=== PATIENT | male | born 1950 | race Caucasian/White ===

== ENCOUNTER 2017-06-16 05:10 | Inpatient (IN) | payer OTHER, MEDICARE ==
[2017-06-16] VITALS (41 sets, daily range): BP systolic 97–160; BP diastolic 8–99; PULSE 64–167; RESP 6–28; TEMP 97.6; O2SAT 93–99
[~2017-06-16] VITALS: Ht 177.8 cm; Wt 77.3 kg
[~2017-06-16 05:10] MED LIST: LOMO PO; PROM1SUP12 PR; [UNRECOGNIZED DRUG - CODE] PO
[2017-06-16] MEDS: ASPIRIN 81 MG CHEW TAB PO ONE ×2 (05:15→05:25)
[2017-06-16] MEDS ORDERED: SODIUM CHLORIDE 0.9% FLUSH 10 ML FLUSH IVF PRN (05:15)
[2017-06-16] MEDS ORDERED: AMIT10TA6 PO (05:21)
[2017-06-16] MEDS ORDERED: NITR1SUB3 SL (05:21)
[2017-06-16] MEDS ORDERED: ASPI1TAB57 PO (05:21)
[2017-06-16] MEDS ORDERED: FINA1TAB16 PO (05:21)
[2017-06-16 05:29] LABS: AUTOMATED NEUTROPHIL # 3.9 TH/MM3 (1.8-7.7); BASOPHIL # 0.1 TH/MM3 (0-0.2); EOSINOPHIL # 0.4 TH/MM3 (0-0.4); EOSINOPHIL % 4.6 % (0.0-4.0); HEMATOCRIT 52.9 % (39.0-51.0); HEMOGLOBIN 17.7 GM/DL (13.0-17.0); LYMPH % 35.5 % (9.0-44.0); LYMPHOCYTE # 2.9 TH/MM3 (1.0-4.8); MEAN CELL VOLUME 91.9 FL (80.0-100.0); MEAN CORPUSCULAR HEMOGLOBIN 30.7 PG (27.0-34.0); MEAN CORPUSCULAR HGB CONC 33.4 % (32.0-36.0); MONO % 9.4 % (0.0-8.0); MONOCYTE # 0.8 TH/MM3 (0-0.9); NEUT % 49.5 % (16.0-70.0); PLATELET COUNT 194 TH/MM3 (150-450); RED BLOOD COUNT 5.75 MIL/MM3 (4.50-5.90); RED CELL DISTRIBUTION WIDTH 12.6 % (11.6-17.2); WHITE BLOOD COUNT 8.1 TH/MM3 (4.0-11.0)
[2017-06-16] MEDS ORDERED: ONDANSETRON HCL 4 MG/2 ML VIAL IV ONE ×2 (05:30)
[2017-06-16] MEDS ORDERED: DILTIAZEM INJ 125 MG in SODIUM CHLORIDE 0.9% INJ 100 ML IV PRN (05:30)
[2017-06-16] MEDS ORDERED: DILTIAZEM HCL 25 MG/5 ML VIAL IV ONE (05:30)
[2017-06-16] MEDS ORDERED: NITROGLYCERIN 0.4 MG SL 25 TABS/BTL SL SCH (05:30)
[2017-06-16] MEDS ORDERED: DILTIAZEM HCL 25 MG/5 ML VIAL IV PUSH ONE (05:30)
[2017-06-16 05:40] LABS: CHLORIDE 104 MEQ/L (98-107); SODIUM (NA) 140 MEQ/L (136-145)
[2017-06-16 05:43] LABS: CALCIUM 8.6 MG/DL (8.5-10.1)
[2017-06-16 05:44] LABS: ALBUMIN 3.5 GM/DL (3.4-5.0); BICARBONATE 29.1 MEQ/L (21.0-32.0); BLOOD UREA NITROGEN 7 MG/DL (7-18); GLUCOSE,RANDOM 114 MG/DL (74-106); INTERNATIONAL NORMALIZED RATIO 1.1 RATIO; MAGNESIUM 2.2 MG/DL (1.5-2.5); PROTHROMBIN TIME - PATIENT 10.7 SEC (9.8-11.6)
[2017-06-16 05:47] LABS: ALT (GPT) 35 U/L (12-78); AST (GOT) 21 U/L (15-37); GLOMERULAR FILTRATION RATE 74 ML/MIN (>89)
[2017-06-16 05:49] LABS: TOTAL BILIRUBIN ADULT 0.7 MG/DL (0.2-1.0); TOTAL PROTEIN 7.1 GM/DL (6.4-8.2)
[2017-06-16 05:50] LABS: ALKALINE PHOSPHATASE 97 U/L (45-117)
[2017-06-16 05:52] LABS: TROPONIN I LESS THAN 0.02 NG/ML (0.02-0.05)
--- NOTE | 2017-06-16 05:56 | PD ---
HPI Chief Complaint: Cardiac Complaint Time Seen by Provider: 05:20 Travel History International Travel<30 days: No Contact w/Intl Traveler<30days: No Traveled to known affect area: No History of Present Illness HPI The patient is a 67-year-old male with apparently no known history of heart disease and no history of atrial fibrillation who complains of chest heaviness at 4 AM his morning. The pain is perceived in his midsternal region and is constant since 4 AM. He does have diaphoresis, shortness of breath, nausea and possible radiation to the left arm. He denies any syncopal or near syncopal spells. Apparently, he had chest pain about 2 years ago and had a normal stress test and saw a brusher operator at [facility]. He cannot remember the brusher operator's name. His chest pain was an 8/10. The patient states he is had brief episodes of palpitations intermittently for the past 2 years. He reported this to his brusher operator and his brusher operator did a 24-hour Holter monitor but did not picker machine operator any dysrhythmia at that time. [facility] Past Medical History Diminished Hearing: No GERD: Yes Insomnia: Yes Past Surgical History Cholecystectomy: Yes Social History Alcohol Use: Yes (OCCAS GLASS OF WINE) Tobacco Use: No Substance Use: No Allergies-Medications (Allergen,Severity, Reaction): Coded Allergies: morphine (Unverified Adverse Reaction, Severe, Nausea/Vomiting, 06/16/17) Reported Meds & Prescriptions Reported Meds & Active Scripts Active Reported Aspirin 81 (Aspirin) 81 Mg Tabdr 81 Mg PO DAILY Finasteride (Finasteride (Alopecia)) 1 Mg Tab 1 Mg PO DAILY Nitroglycerin SL (Nitroglycerin) 0.4 Mg Subl 0.4 Mg SL DIRECTED PRN ONE TABLET UNDER THE TONGUE NEEDED FOR CHEST PAIN, MAY REPEAT EVERY FIVE MINUTES FOR A TOTAL OF 3 DOSES OR CALL 911 IF NO RELIEF Amitriptyline (Amitriptyline HCl) 10 Mg Tab 10 Mg PO HS Review of Systems Except as stated in HPI: all other systems reviewed are Neg Physical Exam Narrative GENERAL: The patient is alert, oriented 3 in moderate apparent distress with areas chest discomfort. His vital signs show temperature 97.6 with pulse rate of 167 but otherwise normal. SKIN: Focused skin assessment cool/diaphoretic. No skin rash is present. HEAD: Atraumatic. Normocephalic. EYES: Pupils equal and round. No scleral icterus. No injection or drainage. ENT: No nasal bleeding or discharge. Mucous membranes pink and moist. NECK: Trachea midline. No JVD. No neck vein distention is present. CARDIOVASCULAR: Atrial fibrillation with RVR. No murmur appreciated. RESPIRATORY: No accessory muscle use. Clear to auscultation. Breath sounds equal bilaterally. GASTROINTESTINAL: Abdomen soft, non-tender, nondistended. Hepatic and splenic margins not palpable. MUSCULOSKELETAL: No obvious deformities. No clubbing. No cyanosis. No edema. NEUROLOGICAL: Awake and alert. No obvious cranial nerve deficits. Motor grossly within normal limits. Normal speech. PSYCHIATRIC: Appropriate mood and affect; insight and judgment normal. Data Data Last Documented VS Vital Signs Date Time Temp Pulse Resp B/P (MAP) Pulse Ox O2 Delivery O2 Flow Rate FiO2 06/16/17 05:55 100 16 98/68 (78) 98 Nasal Cannula 06/16/17 05:29 3.00 06/16/17 05:13 97.6 Orders Orders Electrocardiogram (06/16/17 05:15) B-Type Natriuretic Peptide (06/16/17 05:15) Ckmb (Isoenzyme) Profile (06/16/17 05:15) Complete Blood Count With Diff (06/16/17 05:15) Comprehensive Metabolic Panel (06/16/17 05:15) Magnesium (Mg) (06/16/17 05:15) Prothrombin Time / Inr (Pt) (06/16/17 05:15) Act Partial Throm Time (Ptt) (06/16/17 05:15) Troponin I (06/16/17 05:15) Chest, Single Ap (06/16/17 05:15) Ecg Monitoring (06/16/17 05:15) Bilateral Bp Monitoring (06/16/17 05:15) Iv Access Insert/Monitor (06/16/17 05:15) Oximetry (06/16/17 05:15) Oxygen Administration (06/16/17 05:15) Aspirin Chew (Aspirin Chew) (06/16/17 05:15) Sodium Chloride 0.9% Flush (Ns Flush) (06/16/17 05:15) Vital Signs (Adult) Q15MX4,Q4H (06/16/17 05:17) Bank Courier / Telemetry DONALD.Q8H (06/16/17 05:17) Cardiac Rhythm DONALD.Q8H (06/16/17 05:17) Notify Dr: Other (06/16/17 05:17) Diltiazem Inj (Cardizem Inj) (06/16/17 05:30) Diltiazem Inj (Cardizem Inj) (06/16/17 05:30) Ondansetron Inj (Zofran Inj) (06/16/17 05:30) Nitroglycerin Sl (Nitrostat Sl) (06/16/17 05:30) Ondansetron Inj (Zofran Inj) (06/16/17 05:30) Diltiazem Inj (Cardizem Inj) (06/16/17 05:30) Urinalysis - C+S If Indicated (06/16/17 05:58) Admit Order (Ed Use Only) (06/16/17 06:09) Labs Laboratory Tests Test 06/16/17 05:19 06/16/17 06:00 White Blood Count 8.1 TH/MM3 Red Blood Count 5.75 MIL/MM3 Hemoglobin 17.7 GM/DL Hematocrit 52.9 % Mean Corpuscular Volume 91.9 FL Mean Corpuscular Hemoglobin 30.7 PG Mean Corpuscular Hemoglobin Concent 33.4 % Red Cell Distribution Width 12.6 % Platelet Count 194 TH/MM3 Mean Platelet Volume 8.0 FL Neutrophils (%) (Auto) 49.5 % Lymphocytes (%) (Auto) 35.5 % Monocytes (%) (Auto) 9.4 % Eosinophils (%) (Auto) 4.6 % Basophils (%) (Auto) 1.0 % Neutrophils # (Auto) 3.9 TH/MM3 Lymphocytes # (Auto) 2.9 TH/MM3 Monocytes # (Auto) 0.8 TH/MM3 Eosinophils # (Auto) 0.4 TH/MM3 Basophils # (Auto) 0.1 TH/MM3 CBC Comment DIFF FINAL Differential Comment Prothrombin Time 10.7 SEC Prothromb Time International Ratio 1.1 RATIO Activated Partial Thromboplast Time 24.3 SEC Blood Urea Nitrogen 7 MG/DL Creatinine 1.00 MG/DL Random Glucose 114 MG/DL Total Protein 7.1 GM/DL Albumin 3.5 GM/DL Calcium Level 8.6 MG/DL Magnesium Level 2.2 MG/DL Alkaline Phosphatase 97 U/L Aspartate Amino Transf (AST/SGOT) 21 U/L Alanine Aminotransferase (ALT/SGPT) 35 U/L Total Bilirubin 0.7 MG/DL Sodium Level 140 MEQ/L Potassium Level 3.5 MEQ/L Chloride Level 104 MEQ/L Carbon Dioxide Level 29.1 MEQ/L Anion Gap 7 MEQ/L Estimat Glomerular Filtration Rate 74 ML/MIN Total Creatine Kinase 77 U/L Troponin I LESS THAN 0.02 NG/ML B-Type Natriuretic Peptide 15 PG/ML MDM Medical Decision Making Medical Screen Exam Complete: Yes Emergency Medical Condition: Yes Medical Record Reviewed: Yes Interpretation(s) The CBC shows a hemoglobin of 17.7 with hematocrit of 52.9 but is otherwise normal. The coagulation profile is normal. The complete metabolic profile shows a GFR of 74 but is otherwise normal. The cardiac enzymes are normal. The BNP is normal. The initial EKG shows atrial fibrillation with RVR and a heart rate of 147. No acute ST elevation or depression is present. Differential Diagnosis New onset atrial fibrillation with RVR, acute coronary syndrome, electrolyte disorder, hypo-/hyperglycemia Narrative Course It is now 0543 and the patient's pain is a 0/10, he is not nauseated and no longer diaphoretic. His heart rate after diltiazem 25 mg IV is averaging in the mid 80s and blood pressure is 97/65. The bolus of Cardizem was 30 mg ultimately but a drip had to be instituted because he started with rapid response rate again. This is the patient's first diagnosed episode of atrial fibrillation. Impression: New-onset atrial fibrillation with RVR Physician Communication Physician Communication I discussed the patient with Dr. Cleaning, the patient will be admitted to her in the ICU. Diagnosis Primary Impression: Atrial fibrillation with RVR Admitting Information Admitting Physician Requests: Admit Raúl Regalado MD Jun 16, 2017 05:56
[2017-06-16 06:12] LABS: BILIRUBIN, URINE NEG (NEG); BLOOD, URINE NEG (NEG); GLUCOSE,URINE NEG (NEG); KETONE, URINE TRACE mg/dL (NEG); NITRITE,URINE NEG (NEG); URINE LEUKOCYTE ESTERASE NEG (NEG)
[2017-06-16] MEDS ORDERED: MAGNESIUM HYDROXIDE SUSP 30 ML CUP PO PRN (06:15)
[2017-06-16] MEDS ORDERED: BISACODYL 10 MG SUPP RECTAL PRN (06:15)
[2017-06-16] MEDS ORDERED: ACETAMINOPHEN 325 MG TAB PO PRN (06:15)
[2017-06-16] MEDS ORDERED: MORPHINE SULFATE 2 MG/ML INJ IV PUSH PRN (06:15)
[2017-06-16] MEDS ORDERED: SODIUM CHLORIDE 0.9% FLUSH 10 ML FLUSH IV FLUSH PRN (06:15)
[2017-06-16] MEDS ORDERED: ACETAMINOPHEN/HYDROcodone 325 MG/5 MG TAB PO PRN (06:15)
[2017-06-16] MEDS ORDERED: ONDANSETRON HCL 4 MG/2 ML VIAL IVP PRN (06:15)
[2017-06-16] MEDS ORDERED: SENNOSIDES 8.6 MG TAB PO PRN (06:15)
[2017-06-16] MEDS ORDERED: LACTULOSE SYRUP 20 GM/30 ML CUP PO PRN (06:15)
[2017-06-16 06:27] LABS: URINE COLOR YELLOW (YELLW/STRAW)
--- NOTE | 2017-06-16 06:29 | RADRPT ---
EXAM DATE/TIME: 06/16/2017 05:29 [place] COMPARISON: CHEST SINGLE AP, April 15, 2012, 21:40. INDICATIONS : Chest pain. MEDICAL HISTORY : Gastroesophageal reflux disease. SURGICAL HISTORY : None. ENCOUNTER: Initial ACUITY: 1 day PAIN SCORE: 8/10 LOCATION: Bilateral chest FINDINGS: The cardiac silhouette is normal in transverse diameter. The aortic knob is prominent with tortuosity of the descending thoracic aorta. There are chronic fibrotic changes bilaterally. There is linear at electasis versus scar on the right. Diffusion weighted imaging demonstrates no abnormality. CONCLUSION: 1. Chronic fibrotic changes bilaterally unchanged from the prior study. 2. Right basilar atelectasis versus scar Eduardo Monk MD on June 16, 2017 at 6:26 Board Certified Radiologist. This report was verified electronically.
[2017-06-16 06:31] LABS: MUCUS URINE FEW /lpf (OCC)
[2017-06-16 06:32] LABS: HYALINE CAST, URINE 0-2 /lpf (RARE); SQUAMOUS EPITHELIAL CELL URINE 0-5 /hpf (0-5)
[2017-06-16] MEDS: SODIUM CHLOR 0.9% 1000 ML INJ 1,000 ML IV SCH ×2 (06:33→09:53)
--- NOTE | 2017-06-16 08:06 | MB ---
cc: JOSE ANGEL CRISTINA MD DATE OF CONSULTATION June 16, 2017 REASON FOR CONSULTATION Chest pain and new onset atrial fibrillation. HISTORY OF PRESENT ILLNESS The patient is a very pleasant 67-year-old gentleman with no prior cardiac history who does admit to periodically having palpitations and the sensation of fluttering in his chest. He presented with chest discomfort. He says beginning yesterday evening he began having a fairly severe pressure in the central chest which did not go away despite aspirin and some very old nitroglycerin he had around the house (from his father). He presented to the emergency department and was found to be in a rapid atrial fibrillation, was started on a Cardizem drip and admitted to the ICU. Now that the patient is more rate-controlled, he says he is feeling quite a bit better. He still has some mild residual chest discomfort but it is much better than when he presented. He has no shortness of breath, current sensation of palpitations, lightheadedness, dizziness or syncope. PAST MEDICAL HISTORY 1. BPH. 2. Questionable hypertension. 3. Mild polycythemia, no longer receiving phlebotomy. CURRENT MEDICATIONS 1. Aspirin 81 mg daily. 2. Cardizem drip. ALLERGIES MORPHINE. PHYSICAL EXAMINATION VITAL SIGNS: Afebrile, pulse 115, respiratory rate 18, BP 160/83, sating 99 on 2 liters. GENERAL: Pleasant, well-appearing gentleman in no distress. NECK: No JVD. LUNGS: Clear to auscultation bilaterally. CARDIOVASCULAR: Irregularly irregular rhythm with a mildly rapid rate. No murmurs appreciated. ABDOMEN: Benign. EXTREMITIES: No edema. LABORATORY DATA Sodium 140, potassium 3.5, chloride 104, bicarb 29.1, BUN 7, creatinine 1.0, glucose 114. Troponin is less than 0.02. INR is 1.1. White count 8.1, hematocrit 52.9, platelets 194. CHEST X-RAY Chronic fibrotic changes. EKG Atrial fibrillation with rapid ventricular response and rate of about [address] changes. IMPRESSION 1. New onset atrial fibrillation. The patient has atrial fibrillation of an uncertain duration. I discussed this at length with the patient and though his CHADS-VASc score is relatively low (one point for age and perhaps one point for hypertension). We agree that, given his history of polycythemia very as well as increasing age and possible hypertension, we will opt for full anticoagulation with Eliquis. The risks and benefits of anticoagulation was discussed at length with the patient. I will add oral Cardizem for rate control and attempt to get him off his Cardizem drip. We will get a 2-D echocardiogram to evaluate his LV function and valvular status. 2. Chest pain. The patient's chest pain does sound reasonably significant and it is unclear whether he was having symptomatic atrial fibrillation or if he indeed was presenting in acute coronary syndrome. His first troponin is negative. He can rule out for IN and following his third set can have a nuclear stress test either later today or tomorrow. Further recommendations will be based on the above. Thank you again for the opportunity to participate in this patient's care. MD DEEPIKA Son/LUIS /7:34 AM /7:41 AM
[2017-06-16] MEDS ORDERED: CHLORHEXIDINE GLUCONATE 2 % 1 PACK (2 CLOTHS)(extra cloths) TOPICAL PRN (08:30)
--- NOTE | 2017-06-16 08:56 | HHI.HP ---
[facility] Nimesh Mccormack M.D. Admission Diagnosis atrial fibrillation with RVR Diagnoses: Chief Complaint: chest pain Travel History International Travel<30 Days: No Contact w/Intl Traveler <30 Da: No Traveled to Known Affected Are: No History of Present Illness 67-year-old white male being admittted for chest pain Patient was in his usual state of health until earlier around 4 am morning when he woke up with some right-sided flank pain. This was followed by intense chest pain that he says was 8 out of 10 that was sharp in nature. He says he took 2 baby aspirins to no avail. He had some associated diaphoresis and nausea ; then decided to come to the emergency department. He states not chest pain is gone, feels a lot better, but still feels a funny sensation in his chest. Currently heart rate on telemetry is running anywhere from 110 to 130s while on diltiazem rate of 5. Day nurse denies any deterioration since receiving the patient. Review of Systems Except as stated in HPI: all other systems reviewed are Neg Past Family Social History Past Medical History Previous history of polycythemia BPH Past Surgical History Cholecystectomy Reported Medications finasteride Allergies: Coded Allergies: morphine (Unverified Adverse Reaction, Severe, Nausea/Vomiting, 06/16/17) Family History Parents with unspecified heart disease Social History Denies any routine smoking habit; says he smoked about 1 or 2 cigarettes over 30 years ago. Physical Exam Vital Signs Vital Signs Date Time Temp Pulse Resp B/P (MAP) Pulse Ox O2 Delivery O2 Flow Rate FiO2 06/16/17 07:23 06/16/17 07:04 115 18 160/83 (108) 99 Nasal Cannula 2.00 06/16/17 07:02 116 99 Nasal Cannula 2.00 06/16/17 06:35 110 104/83 06/16/17 06:31 106 16 104/83 (90) 98 Nasal Cannula 4.00 06/16/17 05:55 100 16 98/68 (78) 98 Nasal Cannula 06/16/17 05:45 97/65 (76) 06/16/17 05:35 93 119/64 (82) 06/16/17 05:30 118 105/71 (82) 06/16/17 05:29 18 99 Nasal Cannula 3.00 06/16/17 05:25 150 16 123/84 (97) 96 Nasal Cannula 4.00 06/16/17 05:20 158 18 106/74 (85) 98 Nasal Cannula 4.00 112/78 (89) 06/16/17 05:20 96 Nasal Cannula 4.00 06/16/17 05:13 97.6 167 18 123/84 (97) 96 Physical Exam VS: afebrile GENERAL: NAD, elderly white male, well nourished SKIN: Warm and dry. EYES: No scleral icterus. No injection or drainage. ENT: No nasal bleeding or discharge. Mucous membranes pink and moist. CARDIOVASCULAR: Irregular rhythm, tachycardic rate, no murmurs Lungs: Clear to auscultation. Breath sounds equal bilaterally. GASTROINTESTINAL: Abdomen soft, non-tender, nondistended. Extremities: No clubbing, cyanosis, or edema. No obvious deformities. MUSCULOSKELETAL: grossly intact ROM with 5/5 strength in upper and lower extremities proximally; adequate muscle bulk and tone for age and habitus NEUROLOGICAL: Awake and alert. No obvious cranial nerve deficits. No facial droop nor slurred speech noted. PSYCHIATRIC: Appropriate mood and affect; insight and judgment normal. Laboratory Laboratory Tests Test 06/16/17 05:19 06/16/17 06:00 White Blood Count 8.1 Red Blood Count 5.75 Hemoglobin 17.7 Hematocrit 52.9 Mean Corpuscular Volume 91.9 Mean Corpuscular Hemoglobin 30.7 Mean Corpuscular Hemoglobin Concent 33.4 Red Cell Distribution Width 12.6 Platelet Count 194 Mean Platelet Volume 8.0 Neutrophils (%) (Auto) 49.5 Lymphocytes (%) (Auto) 35.5 Monocytes (%) (Auto) 9.4 Eosinophils (%) (Auto) 4.6 Basophils (%) (Auto) 1.0 Neutrophils # (Auto) 3.9 Lymphocytes # (Auto) 2.9 Monocytes # (Auto) 0.8 Eosinophils # (Auto) 0.4 Basophils # (Auto) 0.1 CBC Comment DIFF FINAL Differential Comment Prothrombin Time 10.7 Prothromb Time International Ratio 1.1 Activated Partial Thromboplast Time 24.3 Blood Urea Nitrogen 7 Creatinine 1.00 Random Glucose 114 Total Protein 7.1 Albumin 3.5 Calcium Level 8.6 Magnesium Level 2.2 Alkaline Phosphatase 97 Aspartate Amino Transf (AST/SGOT) 21 Alanine Aminotransferase (ALT/SGPT) 35 Total Bilirubin 0.7 Sodium Level 140 Potassium Level 3.5 Chloride Level 104 Carbon Dioxide Level 29.1 Anion Gap 7 Estimat Glomerular Filtration Rate 74 Total Creatine Kinase 77 Troponin I LESS THAN 0.02 B-Type Natriuretic Peptide 15 Urine Color YELLOW Urine Turbidity CLEAR Urine pH 6.0 Urine Specific [place] 1.007 Urine Protein NEG Urine Glucose (UA) NEG Urine Ketones TRACE Urine Occult Blood NEG Urine Nitrite NEG Urine Bilirubin NEG Urine Leukocyte Esterase NEG Urine Squamous Epithelial Cells 0-5 Urine Hyaline Casts 0-2 Urine Mucus FEW Microscopic Urinalysis Comment CULT NOT INDICATED Result Diagram: 06/16/1751806/16/17518 Imaging Last Impressions Chest X-Ray 06/16/17514 Signed Impressions: Service Date/Time: Friday, June 16, 2017 05:29 - CONCLUSION: 1. Chronic fibrotic changes bilaterally unchanged from the prior study. 2. Right basilar atelectasis versus scar MD Sukhjinder Johnson VTE Risk Assessment Caprini VTE Risk Assessment: Mod/High Risk (score >= 2) Caprini Risk Assessment Model Point Value = 1 Point Value = 2 Point Value = 3 Point Value = 5 Age 41-60 Minor surgery BMI > 25 kg/m2 Swollen legs Varicose veins or History of unexplained or recurrent spontaneous Oral contraceptives or hormone replacement Sepsis (< 1 month) Serious lung disease, including pneumonia (< 1 month) Abnormal pulmonary function Acute myocardial infarction Congestive heart failure (< 1 month) History of inflammatory bowel disease Medical patient at bed rest Age 61-74 Arthroscopic surgery Major open surgery (> 45 min) Laparoscopic surgery (> 45 min) Malignancy Confined to bed (> 72 hours) Immobilizing plaster cast Central venous access Age >= 75 History of VTE Family history of VTE Factor V Leiden Prothrombin [id number] Lupus anticoagulant Anticardiolipin antibodies Elevated serum homocysteine Heparin-induced thrombocytopenia Other congenital or acquired thrombophilia Stroke (< 1 month) Elective arthroplasty Hip, pelvis, or leg fracture Acute spinal cord injury (< 1 month) Prophylaxis Regimen Total Risk Factor Score Risk Level Prophylaxis Regimen 0-1 Low Early ambulation 2 Moderate Order ONE of the following: *Sequential Compression Device (SCD) *Heparin 5000 units SQ BID 3-4 Higher Order ONE of the following medications: *Heparin 5000 units SQ TID *Enoxaparin/Lovenox 40 mg SQ daily (WT < 150 kg, CrCl > 30 mL/min) *Enoxaparin/Lovenox 30 mg SQ daily (WT < 150 kg, CrCl > 10-29 mL/min) *Enoxaparin/Lovenox 30 mg SQ BID (WT < 150 kg, CrCl > 30 mL/min) AND/OR *Sequential Compression Device (SCD) 5 or more Highest Order ONE of the following medications: *Heparin 5000 units SQ TID (Preferred with Epidurals) *Enoxaparin/Lovenox 40 mg SQ daily (WT < 150 kg, CrCl > 30 mL/min) *Enoxaparin/Lovenox 30 mg SQ daily (WT < 150 kg, CrCl > 10-29 mL/min) *Enoxaparin/Lovenox 30 mg SQ BID (WT < 150 kg, CrCl > 30 mL/min) AND *Sequential Compression Device (SCD) Assessment and Plan Assessment and Plan chest pain - Lexiscan scheduled for today - Protonix - Independently reviewed EKG and see no significant ST segment changes concerning for ischemia or infarction - Trending troponins - npo except po meds afib w/ RVR - cards consulted - on cardizem drip and starting oral cardizem - Full anti-cognition per cardiology recommendations - echo performed; result pending mild polycythemia vera - anticoagulation - f/u with heme/onco post discharge Stress test d/w cardiology; unremarkable. Pt tolerating po intake well w/ no cp. Pt hr has stabilized. Patient has met maximum benefit from hospitalization and is clinically stable for discharge with by mouth Cardizem and Eliquis. Physician Certification 2 Midnight Certification Type: Admission for Inpatient Services Order for Inpatient Services The services are ordered in accordance with Medicare regulations or non- Medicare payer requirements, as applicable. In the case of services not specified as inpatient-only, they are appropriately provided as inpatient services in accordance with the 2-midnight benchmark. Estimated LOS (days): 2 2 days is the estimated time the patient will need to remain in the hospital, assuming treatment plan goals are met and no additional complications. Post-Hospital Plan: Home Dandy Negro MD Jun 16, 2017 08:56
[2017-06-16] MEDS ORDERED: ASPIRIN EC 81 MG TABEC PO SCH (09:00)
[2017-06-16] MEDS ORDERED: APIXABAN 5 MG TABLET PO SCH (09:00)
[2017-06-16] MEDS ORDERED: SODIUM CHLORIDE 0.9% FLUSH 10 ML FLUSH IV FLUSH SCH (09:00)
[2017-06-16] MEDS ORDERED: DOCUSATE SODIUM 50 MG/SENNA 8.6 MG TAB PO SCH (09:00)
[2017-06-16] MEDS: DILTIAZEM HCL 60 MG TAB PO SCH ×3 (09:48→18:38)
--- NOTE | 2017-06-16 12:46 | ECHRPT ---
Indication: ATRIAL FIB CONCLUSIONS The left ventricular systolic function is normal with an estimated ejection fraction in the range of 55-60%. Normal left ventricular size. Moderate concentric left ventricular hypertrophy. No regional wall motion abnormalities are present. Trace mitral valve regurgitation. Aortic valve sclerosis is present. There is trace tricuspid valve regurgitation. The estimated pulmonary arterial pressure is 24 mmHg. BP: 160 / 83 HR: 108 Rhythm: Sinus MEASUREMENTS (Male / Female) Normal Values Technical Quality:Fair 2D ECHO LV Diastolic Diameter PLAX 4.2 cm 4.2 - 5.9 / 3.9 - 5.3 cm LV Systolic Diameter PLAX 2.9 cm IVS Diastolic Thickness 1.3 cm 0.6 - 1.0 / 0.6 - 0.9 cm LVPW Diastolic Thickness 1.4 cm 0.6 - 1.0 / 0.6 - 0.9 cm LV Relative Wall Thickness 0.6 LVOT Diameter 1.8 cm LV Ejection Fraction MOD 4C 55.1 % LV Cardiac Index MOD 4C 2096.4 cm/minm LV Ejection Fraction 4C AL 58.9 % LV Cardiac Index 4C AL 2320.7 cm/minm M-MODE Aortic Root Diameter MM 3.3 cm AV Cusp Separation MM 1.6 cm DOPPLER AV Peak Velocity 99.1 cm/s AV Peak Gradient 3.9 mmHg LVOT Peak Velocity 92.3 cm/s LVOT Peak Gradient 3.4 mmHg AV Area Cont Eq pk 2.4 cm MV Area PHT 4.5 cm Mitral E Point Velocity 77.0 cm/s Mitral A Point Velocity 54.3 cm/s Mitral E to A Ratio 1.4 LV E' Lateral Velocity 6.0 cm/s Mitral E to LV E' Lateral Ratio 12.7 LV E' Septal Velocity 8.9 cm/s Mitral E to LV E' Septal Ratio 8.7 TR Peak Velocity 187.0 cm/s TR Peak Gradient 14.0 mmHg Right Atrial Pressure 10.0 mmHg Pulmonary Artery Systolic Pressu 24.0 mmHg Right Ventricular Systolic Press 24.0 mmHg FINDINGS LEFT VENTRICLE The left ventricular systolic function is normal with an estimated ejection fraction in the range of 55-60%. Normal left ventricular size. Moderate concentric left ventricular hypertrophy. No regional wall motion abnormalities are present. RIGHT VENTRICLE Normal right ventricular size and systolic function. LEFT ATRIUM The left atrial size is normal. RIGHT ATRIUM The right atrial size is normal. ATRIAL SEPTUM Normal atrial septal thickness without atrial level shunting by limited color doppler interrogation. AORTA The aortic root and proximal ascending aorta are normal in size on limited imaging. MITRAL VALVE Structurally normal mitral valve. Trace mitral valve regurgitation. AORTIC VALVE Trileaflet aortic valve. No aortic valve stenosis or regurgitation. Aortic valve sclerosis is present. TRICUSPID VALVE Structurally normal tricuspid valve. There is trace tricuspid valve regurgitation. The estimated pulmonary arterial pressure is 24 mmHg. PULMONARY VALVE No pulmonary valve regurgitation or stenosis. VESSELS The inferior vena cava is normal in size. PERICARDIUM No pericardial effusion. Brandon Milligan MD, FACC (Electronically Signed) Final Date:16 June 2017 12:46
[2017-06-16] MEDS ORDERED: PANTOPRAZOLE SOD 40 MG DELAYED RELEASE TAB PO SCH (13:00)
[2017-06-16] MEDS ORDERED: REGADENOSON INJ 0.4 MG/5 ML SYR IV ONE (16:05)
[2017-06-16] MEDS ORDERED: LORazepam 1 MG TAB PO ONE (16:30)
[2017-06-16] MEDS ORDERED: APIX5TAB PO (17:15)
--- NOTE | 2017-06-16 17:16 | HHI.DCPOC ---
Discharge Care Plan Diagnosis: (1) Atrial fibrillation with RVR Goals to Promote Your Health * To prevent worsening of your condition and complications * To maintain your health at the optimal level Directions to Meet Your Goals Take your medications as prescribed Follow your dietary instruction Follow activity as directed Keep your appointments as scheduled Take your immunizations and boosters as scheduled If your symptoms worsen call your PCP, if no PCP go to Urgent Care Center or Emergency Room Smoking is Dangerous to Your Health. Avoid second hand smoke Call the 24-hour hour crisis hotline for domestic abuse at Dandy Negro MD Jun 16, 2017 17:16
[2017-06-16] MEDS ORDERED: DILT60TA33 PO (17:19)
[2017-06-16] MEDS ORDERED: OMEP20TA93 PO (17:21)
--- NOTE | 2017-06-16 17:38 | RADRPT ---
EXAM DATE/TIME: 06/16/2017 12:28 [place] COMPARISON: No previous studies available for comparison. INDICATIONS : Midsternal chest pain radiating to the left arm with diaphoresis, dyspnea and nausea. Angina. Atrial fibrillation. DOSE: 25.4 mCi Tc99m Myoview at stress. 8.8 mCi Tc99m Myoview at rest. 0.4 mg Lexiscan STRESS SYMPTOMS: Dyspnea and facial flush. EJECTION FRACTION: 70% MEDICAL HISTORY : Gastroesophageal reflux disease. SURGICAL HISTORY : Cholecystectomy. ENCOUNTER: Initial ACUITY: 1 day PAIN SCALE: 4/10 LOCATION: Midsternal chest TECHNIQUE: The patient underwent pharmacologic stress with infusion of prescribed dose. Continuous ECG tracing was monitored during stress. Gated SPECT imaging was performed after stress and conventional SPECT i maging was performed at rest. The examination was performed on a SPECT/CT scanner, both attenuation and non-corrected datasets were reviewed. FINDINGS: Perfusion is slightly better at stress than rest in the anterior myocardium, involving mid bibasilar wall. There is no other evidence for stress-induced ischemia. This is of doubtful clinical signific ance. Correlation is suggested. The ejection fraction is 70%. CONCLUSION: The perfusion at rest and stress with segment of the anterior wall of doubtful clinical significance. Normal ejection fraction and wall motion. Correlation suggested.. RISK CATEGORY: Low (<1% Annual Mortality Rate) Earnest Smiley MD FACR on June 16, 2017 at 17:33 Board Certified Radiologist. This report was verified electronically.
--- NOTE | 2017-06-16 18:36 | EKG ---
Date Performed: 06/16/2017 Time Performed: 05:15:04 PTAGE: 67 years EKG: ATRIAL FIBRILLATION WITH RAPID VENTRICULAR RESPONSE WITH ABERRANT CONDUCTION OR VENTRICULAR PREMATURE COMPLEXES MARKED LEFT AXIS DEVIATION PATTERN CONSISTENT WITH PULMONARY DISEASE Compared to previous tracing, the patient is now in atrial fibrillation with rapid ventricular rate ABNORMAL ECG PREVIOUS TRACING : 04/15/2012 21.44 DOCTOR: Rosa Grant Interpretating Date/Time 06/16/2017 18:34:24
[2017-06-17] MEDS ORDERED: CHLORHEXIDINE GLUCONATE 2 % 1 PACK (2 CLOTHS)(taper/protocol) TOPICAL SCH (04:00)
== END 2017-06-16 19:01 | disposition home or self-care (01) | DRG 310 ==
LOC: PHED 05:10 → PHEDA 06:10 → PHICU 07:19
PROVIDERS: ADMIT Hospitalist; ATTEND Hospitalist
DX: I48.91 Unspecified atrial fibrillation (principal); D45 Polycythemia vera; N40.0 Benign prostatic hyperplasia without lower urinary tract symptoms; K21.9 Gastro-esophageal reflux disease without esophagitis; G47.00 Insomnia, unspecified; Z88.5 Allergy status to narcotic agent
CPT/HCPCS: 71045; 78452; 80053; 81001; 82550; 83735; 83880; 84484; 85025; 85610; 85730; 87641; 93005; 93017; 93306; 96374; 96375; A9502; J2405; J2785; J7030